=== PATIENT | female | born 1975 | race African-American/Black ===

== ENCOUNTER 2018-11-28 16:49 | Emergency (ER) | payer OTHER ==
--- NOTE | 2018-11-28 16:56 | EDM.PDOC ---
ED HPI GENERAL MEDICAL PROBLEM - General Chief Complaint: Back Pain or Injury Stated Complaint: BACK PAIN Time Seen by Provider: 11/28/18 16:50 Source of Information: Reports: Patient History Limitations: Reports: No Limitations - History of Present Illness INITIAL COMMENTS - FREE TEXT/NARRATIVE: HISTORY AND PHYSICAL: History of present illness: Patient is a 43-year-old female presenting to the emergency room for complaints of lower back pain. Patient reports that while at work today a patient "fell on her" while she was trying to "catch" the patient. Patient experienced immediate lower back pain. She rates the pain in her back at a 7 out of 10 and states it feels like "it is being stretched". She also reports pain in her right lower buttocks that she describes as "sharp". She denies dysuria, bowel or bladder incontinence, or paresthesias. She reports that has been taking BC packets ( aspirin/caffeine). She states that she is still having pain and that moving around or slightly sitting forward somewhat alleviate the pain, while sitting still aggravates the pain. Patient denies any fever, chills, headache, change in vision, syncope or near syncope. Denies any chest pain, shortness of breath or cough. Denies any abdominal pain, nausea, vomiting, diarrhea, constipation or dysuria. Has not noted any blood in urine or stool. Patient has been eating and drinking appropriately. Review of systems: As per history of present illness and below otherwise all systems reviewed and negative. Past medical history: As per history of present illness and as reviewed below otherwise noncontributory. Surgical history: As per history of present illness and as reviewed below otherwise noncontributory. Social history: See social history for further information Family history: As per history of present illness and as reviewed below otherwise noncontributory. Physical exam: General: he shouldn't is a well nourished and well developed 43-year-old female. Alert and orientated. Nontoxic in appearance and in no acute distress. Vital signs have been reviewed by me HEENT: Atraumatic, normocephalic, pupils equal and reactive bilaterally, negative for conjunctival pallor or scleral icterus, mucous membranes moist, TMs normal bilaterally, throat clear, neck supple, nontender, trachea midline. No drooling or trismus noted. No meningeal signs. No hot potato voice noted. Lungs: Clear to auscultation, breath sounds equal bilaterally, chest nontender. Heart: S1S2, regular rate and rhythm without overt murmur Abdomen: Soft, nondistended, nontender. Negative for masses or hepatosplenomegaly. Negative for costovertebral tenderness. C-spine/Back: Pinpoint vertebral tenderness upon palpation of the lumbo-sacral vertebrae. No crepitus, step-offs or obvious deformities. Patient is ambulatory into the emergency room without difficulty or deficit. Able to rock back on heels and walk on toes. Denies any urinary or fecal incontinence. Denies any numbness, tingling or saddle paresthesia. Skin: Intact, warm, dry. No lesions or rashes noted. Extremities: Atraumatic, moves all extremities per self without difficulty or deficits, negative for cords or calf pain. Neurovascular unremarkable. Neuro: Awake, alert, oriented. Cranial nerves II through XII unremarkable. Cerebellum unremarkable. Motor and sensory unremarkable throughout. Exam nonfocal. Notes: Patient refuses the sign Medrol and Norflex and states that she does not like either of these medications, feels "loopy" with these medicines. She has already maxed out her NSAID with the BC powder that she's taken today, therefore I cannot give her any Toradol. No acute findings are noted on x-ray. Patient states she does not want any medications for home. Supportive care measures were reviewed and discussed. Voices understanding and is agreeable to plan of care. Denies any further questions or concerns at this time. Diagnostics: Lumbosacral x-ray Therapeutics: Solu-Medrol and Norflex (refused) Prescription: Declines Impression: Lumbar back pain, acute Plan: 1. Tylenol as needed for pain management. 2. You may rest and use a heating pad as needed for the pain. 3. Return to the Emergency room as needed and as discussed. Definitive disposition and diagnosis as appropriate pending reevaluation and review of above. Lower Back Pain Score (Numeric/FACES): 7 - Related Data Allergies Allergy/AdvReac Type Severity Reaction Status Date / Time No Known Allergies Allergy Verified 11/28/18 17:04 Home Meds: Home Meds . [No Known Home Meds] 11/28/18 [History] ED ROS GENERAL - Review of Systems Review Of Systems: ROS reveals no pertinent complaints other than HPI. ED EXAM,LOWER BACK PAIN/INJURY - Physical Exam Exam: See Below (See dictation) Course - Vital Signs Last Recorded V/S: Last Vital Signs Temp 98.0 F 11/28/18 17:01 Pulse 87 11/28/18 17:01 Resp 18 11/28/18 17:01 BP 144/85 H 11/28/18 17:01 Pulse Ox 97 11/28/18 17:01 - Orders/Labs/Meds Orders: Active Orders 24 hr Category Date Time Status Orphenadrine [Norflex] Med 11/28/18 17:15 Active 60 mg IM Q12H Medication Orders Orphenadrine Citrate (Norflex) 60 mg IM Q12H BELIA Last Admin: 11/28/18 17:30 Dose: Not Given Meds: Medications Generic Name Dose Route Start Last Admin Trade Name Freq PRN Reason Stop Dose Admin Orphenadrine Citrate 60 mg 11/28/18 17:15 11/28/18 17:30 Norflex IM Not Given Q12H BELIA Discontinued Medications Generic Name Dose Route Start Last Admin Trade Name Freq PRN Reason Stop Dose Admin Methylprednisolone Sodium Succinate 125 mg 11/28/18 17:13 11/28/18 17:30 Solu-Medrol IM 11/28/18 17:14 Not Given ONETIME ONE Departure - Departure Time of Disposition: 18:10 Disposition: Home, Self-Care 01 Clinical Impression: Acute lumbar back pain Qualifiers: Back pain laterality: bilateral Sciatica presence: without sciatica Qualified Code(s): M54.5 - Low back pain - Discharge Information Instructions: Acute Back Pain, Adult Referrals: PCP,None [Primary Care Provider] - Forms: ED Department Discharge Additional Instructions: The following information is given to patients seen in the emergency department who are being discharged to home. This information is to outline your options for follow-up care. We provide all patients seen in our emergency department with a follow-up referral. The need for follow-up, as well as the timing and circumstances, are variable depending upon the specifics of your emergency department visit. If you don't have a primary care physician on staff, we will provide you with a referral. We always advise you to contact your personal physician following an emergency department visit to inform them of the circumstance of the visit and for follow-up with them and/or the need for any referrals to a consulting specialist. The emergency department will also refer you to a specialist when appropriate. This referral assures that you have the opportunity for follow-up care with a specialist. All of these measure are taken in an effort to provide you with optimal care, which includes your follow-up. Under all circumstances we always encourage you to contact your private physician who remains a resource for coordinating your care. When calling for follow-up care, please make the office aware that this follow-up is from your recent emergency room visit. If for any reason you are refused follow-up, please contact the [facility] Emergency Department at and asked to speak to the emergency department charge nurse. [facility] [address] [place] [id number] [facility] [address] [place] [id number] 1. Tylenol as needed for pain management. 2. You may rest and use a heating pad as needed for the pain. 3. Return to the Emergency room as needed and as discussed. - My Orders Last 24 Hours: My Active Orders 11/28/18 17:15 Orphenadrine [Norflex] 60 mg IM Q12H - Assessment/Plan Last 24 Hours: My Active Orders 11/28/18 17:15 Orphenadrine [Norflex] 60 mg IM Q12H
[2018-11-28] MEDS ORDERED: methylPREDNISolone Sodium Succinate 125 MG/2 ML SDV IM ONE (17:13)
--- NOTE | 2018-11-28 17:55 | CR ---
HISTORY: Lower back pain. Three-view lumbar spine. Findings: Mild dextroconvex curvature of the thoracolumbar junction. Normal height and alignment of the vertebral bodies. No fractures seen. No spondylolisthesis or spondylolysis. Dictated by Rossy Jacobo MD @ Nov 28 2018 5:52PM Signed by Dr. Rossy Jacobo @ Nov 28 2018 5:53PM
== END 2018-11-28 18:29 | disposition home or self-care (01) ==
LOC: MW.ED 16:49
DX: M54.5 Low back pain (principal); W50.0XXA Accidental hit or strike by another person, initial encounter; Y93.F9 Activity, other caregiving; Y92.89 Other specified places as the place of occurrence of the external cause; Y99.0 Civilian activity done for income or pay
CPT/HCPCS: 72100; 72100-26; 99283-25